=== PATIENT | female | born 1955 | race Caucasian/White ===

== ENCOUNTER 2025-01-22 00:35 | Inpatient (IN) | payer MEDICARE, OTHER, SELFPAY ==
[2025-01-21 16:37] VITALS: BP 149/67
[2025-01-21 17:10] LABS: Hematocrit 38.7 % (37.0-47.0); Hemoglobin 12.1 g/dL (12.0-16.0); Mean Corp Hgb Conc. 31.3 g/dL (33.0-37.0); Mean Corpuscular Volume 84.5 fL (81.0-99.0); Nucleated Red Blood Cells % 0 %; Platelet Count 244 10^3/uL (130-400); Red Cell Dist. Width 15.4 % (11.5-14.5)
[2025-01-21 17:13] LABS: Urine Character Clear (Clear)
[2025-01-21 17:21] LABS: INR 1.01; PT 13.6 Sec (11.4-14.6)
[2025-01-21 17:34] LABS: ALT (SGPT) 26 U/L (0-35); AST (SGOT) 26 U/L (14-36); Albumin 5.0 g/dl (3.5-5.0); Alkaline Phosphatase 73 U/L (38-126); Blood Urea Nitrogen 9 mg/dl (7-17); Calcium 10.3 mg/dl (8.4-10.2); Carbon Dioxide 27 mmol/L (22-30); Chloride 101 mmol/L (98-107); Glucose 189 mg/dl (70-99); Potassium 4.3 mmol/L (3.5-5.1); Sodium 139 mmol/L (135-145); Total Protein 8.3 g/dl (6.3-8.2); eGFR > 60.00
[2025-01-21 21:56] VITALS: BP 139/63
[2025-01-21 22:00] VITALS: BP 125/46
[2025-01-21 23:00] VITALS: BP 145/70
--- NOTE | 2025-01-21 23:04 | ED.GENMED ---
History of Present Illness
<Caro Whyte NP - Last Filed: 01/22/25 00:50>
General
Chief Complaint: Cough
Source: patient
Exam Limitations: none
Time Seen by Provider: 01/21/25 21:20
Nursing documentation reviewed up to this point in time: agreed with
History of Present Illness
History of Present Illness:
Patient to ED with report of hemoptysis. She states approx 1 mos ago she started coughing up blood. SHe was seen by senior commercial loan officer associated with [employer]. SHe had an oupatient CT that showed 'a nodule'. She was scheduled for an outpatient
Bronchoscopy on 01/01. states that she developed bronchospasms and the procedure was not completed. According to patient and spouse, a small sample from nodule was obtained, results were inconclusive. SHe was discharged after bronchoscopy
but developed fever/lethargy when she arrived home. SHe was sent back to by ambulance and admitted for sepsis, respiratory distress. SHe reports that she may have had pneumonia or 'may have had a pulmonary abscess. SHe was treated with IV
Vancomycin and then discharged home 4 days later on po Levaquin. No further hemoptysis until 2 nights ago. SHe reports episodes occur in the AM and the PM. Last episode was this AM. SHe spoke with her PCP and was advised to return to ED. SHe
refuses to return to so her spouse brought her here. SHe denies fever/chills. Increased use of her rescue inhaler. No respiratory distress on exam. On Plavix for prior CVA. Records requested from , awaiting fax.
Past History
<Caro Whyte NP - Last Filed: 01/22/25 00:50>
Past History
ED Past Medical History: CVA (2020), GERD, HTN, Hypercholesterolemia, IDDM and Hypothyroidism
Social History
Tobacco: Former smoker (quit x 20yrs)
Alcohol: None
Drug: None
Review of Systems
<Caro Whyte NP - Last Filed: 01/22/25 00:50>
Review of Systems
All Other Systems: ROS reviewed and negative except as documented in HPI and ROS
Constitutional: Reports no symptoms
EENT: Reports no symptoms
Respiratory: Reports hemoptysis (AM and PM x 3 days)
Cardiac: Reports no symptoms
ABD/GI: Reports no symptoms
: Reports no symptoms
Musculoskeletal: Reports no symptoms
Skin: Reports no symptoms
Neurological: Reports no symptoms
Psychiatric: Reports no symptoms
Phy Exam
<Caro Whyte SALES DIRECTOR - Last Filed: 01/22/25 00:50>
General Physical Exam
General Presentation: well appearing and no apparent distress
General age: appears stated age
General Skin: warm and dry
General Habitus: normal
General Mental: alert
Cardiovascular Exam
Cardiovascular Exam: regular rate/rhythm and no edema
Pulmonary Exam
Pulmonary Exam: lungs clear, no respiratory distress and no cough
Gastrointestinal Exam
Gastrointestinal Exam: non tender and soft
Musculoskeletal Exam
Musculoskeletal Exam: full ROM and neuro vasc intact
Skin Exam
Skin Exam: normal color, warm/dry and no rash
Psychiatric Exam
Psychiatric Exam: normal mood/affect
Course
<Caro Whyte SALES DIRECTOR - Last Filed: 01/22/25 00:50>
Orders/Labs/Results
Orders:
Orders
01/21/25 16:49
Electrocardiogram (*1) Urgent
Reason for Study: Other
Other Reason for Exam: Possible Sepsis
EKG- Treatment ONCE
01/21/25 16:52
CT Chest PE Study Urgent
Comment:
Reason For Exam: recent lung biopsy, coughing up blood
01/21/25 16:57
Complete Blood Count/With Diff Urgent
Comprehensive Metabolic Panel Urgent
Lactic Acid Q4H
Comment: ON ICE, CANCEL 2ND ORDER IF FIRST LACTIC ACID LEVEL <2
Prothrombin Time Urgent
Urinalysis Reflex To Culture Urgent
Date Specimen was Collected: 01/21/25
Time Specimen was Collected: 16:49
Blood Culture Q20M
BHAVNA Source: Blood/Venous
Specimen Description:
Comment: Urgent from separate sites. If patient screens positive for possible sepsis
01/21/25 23:34
PULMONARY CONSULT Urgent
Consulting Provider: Armando Dorantes
Was physician already notified: Yes
01/21/25 23:46
Lactic Acid Q4H
Comment: ON ICE, CANCEL 2ND ORDER IF FIRST LACTIC ACID LEVEL <2
Blood Culture Q20M
BHAVNA Source: Blood/Venous
Specimen Description:
Comment: Urgent from separate sites. If patient screens positive for possible sepsis
01/22/25 00:22
Admit/Transfer Patient As Directed
Co-Sign Provider:
Level of Care: Inpatient admission
Assign to:: Telemetry
Physician / Group: Jesse
Diagnosis: Lung lesion, Hemoptysis
Reason for Telemetry: Arrhythmia
Date to Stop Telemetry: 01/25/25
Time to Stop Telemetry: 11:00
Reason for Hospitalization: Lung lesion, Hemoptysis
Expected length of stay greater than two midnights?: Yes
ELOS- Estimated Length of Stay in days: 3
I certify the patient meets the requirements for IP care: Yes
PRN Pain Medication Management As Directed
May give lesser potent ordered pain med per pt: Yes
preference::
Protocol:: Medication orders for pain may be administered in a
manner that supports deferring to patient preference
when the pt is:
- Requesting an ordered lesser potent pain medication.
Least to most potent pain medications are defined
as: acetaminophen < NSAID < tramadol < opioids
(morphine, oxycodone, hydromorphone).
- Requesting a lesser dose of the same medication IF
ORDERED.
- Requesting a less intrusive route of administration
if both routes are prescribed by the provider (PO <
IV).
01/22/25 00:23
Code Status As Directed
Resuscitation Status: Full Code
01/25/25 11:00
DC Protocol for Telemetry ONCE
Abnormal Lab Results
01/21/25
16:57
MCH 26.4 L pg
(27.0-31.0)
MCHC 31.3 L g/dL
(33.0-37.0)
RDW 15.4 H %
(11.5-14.5)
Glucose 189 H mg/dl
(70-99)
Lactic Acid 3.0 H mmol/L
(0.7-2.0)
Calcium 10.3 H mg/dl
(8.4-10.2)
Total Protein 8.3 H g/dl
(6.3-8.2)
01/21/25 16:57
01/21/25 16:57
Vital Signs
Initial and Last Documented VS:
Initial Vital Signs
Temp Pulse Resp BP Pulse Ox
98.3 F 48 20 149/67 94
01/21/25 16:37 01/21/25 16:37 01/21/25 16:37 01/21/25 16:37 01/21/25 16:37
Last Documented Vital Signs
Temp Pulse Resp BP Pulse Ox
98.1 F 62 24 113/43 93
01/21/25 23:35 01/22/25 00:00 01/22/25 00:00 01/22/25 00:00 01/21/25 23:45
<Robbie Stacy DO - Last Filed: 01/21/25 23:07>
Orders/Labs/Results
Orders:
Orders
01/21/25 16:49
Electrocardiogram (*1) Urgent
Reason for Study: Other
Other Reason for Exam: Possible Sepsis
EKG- Treatment ONCE
01/21/25 16:52
CT Chest PE Study Urgent
Comment:
Reason For Exam: recent lung biopsy, coughing up blood
01/21/25 16:57
Complete Blood Count/With Diff Urgent
Comprehensive Metabolic Panel Urgent
Lactic Acid Q4H
Comment: ON ICE, CANCEL 2ND ORDER IF FIRST LACTIC ACID LEVEL <2
Prothrombin Time Urgent
Urinalysis Reflex To Culture Urgent
Date Specimen was Collected: 01/21/25
Time Specimen was Collected: 16:49
Blood Culture Q20M
BHAVNA Source: Blood/Venous
Specimen Description:
Comment: Urgent from separate sites. If patient screens positive for possible sepsis
01/21/25 23:34
PULMONARY CONSULT Urgent
Consulting Provider: Armando Dorantes
Was physician already notified: Yes
01/21/25 23:46
Lactic Acid Q4H
Comment: ON ICE, CANCEL 2ND ORDER IF FIRST LACTIC ACID LEVEL <2
Blood Culture Q20M
BHAVNA Source: Blood/Venous
Specimen Description:
Comment: Urgent from separate sites. If patient screens positive for possible sepsis
01/22/25 00:22
Admit/Transfer Patient As Directed
Co-Sign Provider:
Level of Care: Inpatient admission
Assign to:: Telemetry
Physician / Group: Jesse
Diagnosis: Lung lesion, Hemoptysis
Reason for Telemetry: Arrhythmia
Date to Stop Telemetry: 01/25/25
Time to Stop Telemetry: 11:00
Reason for Hospitalization: Lung lesion, Hemoptysis
Expected length of stay greater than two midnights?: Yes
ELOS- Estimated Length of Stay in days: 3
I certify the patient meets the requirements for IP care: Yes
PRN Pain Medication Management As Directed
May give lesser potent ordered pain med per pt: Yes
preference::
Protocol:: Medication orders for pain may be administered in a
manner that supports deferring to patient preference
when the pt is:
- Requesting an ordered lesser potent pain medication.
Least to most potent pain medications are defined
as: acetaminophen < NSAID < tramadol < opioids
(morphine, oxycodone, hydromorphone).
- Requesting a lesser dose of the same medication IF
ORDERED.
- Requesting a less intrusive route of administration
if both routes are prescribed by the provider (PO <
IV).
01/22/25 00:23
Code Status As Directed
Resuscitation Status: Full Code
01/25/25 11:00
DC Protocol for Telemetry ONCE
Abnormal Lab Results
01/21/25
16:57
MCH 26.4 L pg
(27.0-31.0)
MCHC 31.3 L g/dL
(33.0-37.0)
RDW 15.4 H %
(11.5-14.5)
Glucose 189 H mg/dl
(70-99)
Lactic Acid 3.0 H mmol/L
(0.7-2.0)
Calcium 10.3 H mg/dl
(8.4-10.2)
Total Protein 8.3 H g/dl
(6.3-8.2)
01/21/25 16:57
01/21/25 16:57
Vital Signs
Initial and Last Documented VS:
Initial Vital Signs
Temp Pulse Resp BP Pulse Ox
98.3 F 48 20 149/67 94
01/21/25 16:37 01/21/25 16:37 01/21/25 16:37 01/21/25 16:37 01/21/25 16:37
Last Documented Vital Signs
Temp Pulse Resp BP Pulse Ox
98.1 F 62 24 113/43 93
01/21/25 23:35 01/22/25 00:00 01/22/25 00:00 01/22/25 00:00 01/21/25 23:45
<Caro Whyte NP - Last Filed: 01/22/25 00:50>
*Radiology
Radiology exam reviewed: radiology read reviewed
*Pulse Oximetry
SaO2: 93
Oxygen Mode of Delivery: Room air
Patient hypoxic: no
*Critical Care Note
Total Time (30-74mins, 75-104mins- exclusive of procedures): Not Applicable
<Caro Whyte NP - Last Filed: 01/22/25 00:50>
Update Note
Update Note:
Patient to ED with report of hemoptysis x 3 days. Recent inpatient stay at for sepsis following broncoscopy. Patient is unclear on what exactly occured during that admission, unclear as to follow up for her pulmonary nodule. Records requested
from , awaiting fax transmission. CT here tonight: Spiculated JAMSHID pulmonary mass concerning for malignance, pneumonia can not be exclulded. Two JAMSHID pulmonary nodules, metastatic vs infectious/inflammatory. Labs reveiwed. WBC 7.2 with lactic of
3.0. SHe remains afebrile. H/H 12.1/38.7 PUlse ox 98%RA. No cough present in ED. No episodes of hemoptysis. Case discussed with Dr. Dorantes. Patient to be admitted to hospitalist, pulmonolgy will consult in AM
ED Attending Note
<Caro Whyte NP - Last Filed: 01/22/25 00:50>
-
Portions of this chart may have been created with voice recognition software.� Occasional wrong word or��sound alike� substitutions may have occurred due to the inherent limitations of voice recognition software.
<Robbie Stacy, DO - Last Filed: 01/21/25 23:07>
ED Attending Note
Patient seen and examined by attending physician: Yes
I performed the substantive portion of visit, reviewed & personally made and approve the management plan that is documented in note by myself or ELEAZAR.: Yes
ED Attending Note:
I evaluated the patient at bedside. Labs are unremarkable however CT imaging is concerning. Pulmonary recommended the patient stay in the hospital for further management.
Discharge Plan
Departure
Patient Disposition: Admit
Date of Disposition: 01/21/25
Time of Disposition: 23:34
Presentation/result/management discussed w/ accepting MD/DO: Hospitalist
Patient with high blood pressure during this ER visit?: No
Condition: Fair
Covid-19: Not Applicable
Discharge Problem:
Hemoptysis
Interventions
Interventions:
*Risk Screen - Suicide Last Done: 01/21/25 16:47
*General Assessment Last Done: 01/21/25 16:47
*Neglect/Abuse Screening Last Done: 01/21/25 16:47
*ED- Fall Risk Assessment Last Done: 01/21/25 22:18
*ED COVID-19 Vaccine History Last Done: 01/21/25 16:47
ED- Pulmonary Assessment Last Done: 01/21/25 22:18
[2025-01-21 23:34] VITALS: BP 125/63
[2025-01-21 23:35] VITALS: BP 125/63
[2025-01-22] VITALS (9 sets, daily range): BP systolic 111–153; BP diastolic 42–77; BMI 28.3
--- NOTE | 2025-01-22 00:24 | HPS.HSE ---
Family Physician
-
Family Physician: Brenda Rodriguez PA-C
Chief Complaint
-
Cough, Hemoptysis
History of Present Illness
Patient is a 69y F with PMH significant for DM-II, prior CVA and hypothyroidism who presents to ED complaining of cough and hemoptysis. Patient states that she has had cough for the past 4 weeks or so. She notes cough that is worse at night and
began to include bright red blood / hemoptysis. She was seen by her PCP and referred to Pulmonology at [facility]. She had CT scan done which showed two small JAMSHID nodules as well as larger L lung lesion with central necrosis. Patient underwent
bronchoscopy at [facility] about 2 weeks ago. Procedure was reportedly cut short due to bronchospasm; although, patient believes that '17 or 18' samples were taken.
Patient was discharged home, but was readmitted within 24 hours with fever and chills. She was treated for pneumonia / sepsis and discharged.
Patient states that she had been feeling well for the past two weeks with no cough, hemoptysis, etc.
About 2 days ago she started to have coughing again. Cough is worse at night and is again accompanied by large amount of bright red blood / hemoptysis.
Patient denies any recurrent fevers, chills, SOB, chest pain, etc.
Patient states that the biopsies done at [facility] were 'inconclusive'.
Medical History
Past Medical History
Past Medical History: Reports Other
Additional Past Medical History:
DM-II
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
Mitral Valve Prolapse
Hypothyroidism
Lung Nodules
Past Surgical History: Reports Other
Additional Past Surgical History:
Cataracts
Pilonidal Cyst
Abdominoplasty
Bronchoscopy / Biopsies
Social History
Tobacco: Former Smoker (Quit smoking 20 years ago. Approx 20 pack years total use.)
Alcohol: None
Drug: None
Family History
Family History: Other (Father: at 36yo due to [place] Brother: at 38yo due to [place] MGF: Lung Cancer Mother: Lung Cancer)
Allergies / Home Medications
Allergies reflects when Allergies were last updated in [facility].
Home Medications with original date entered in [facility]
Allergy/Medication List:
Allergies
Allergy/AdvReac Type Severity Reaction Status Date / Time
amoxicillin Allergy Unknown Verified 01/21/25 23:33
Cephalosporins Allergy Unknown Verified 01/21/25 23:33
clavulanic acid Allergy Unknown Verified 01/21/25 23:33
pecan nut Allergy Unknown Verified 01/21/25 23:33
Penicillins Allergy Unknown Verified 01/21/25 23:33
Home Medications
atenolol 25 mg tablet 25 mg PO DAILY 01/21/25
atorvastatin 20 mg tablet (Lipitor) 20 mg PO QPM 01/21/25
clonazepam 1 mg tablet (Klonopin) 1 mg PO TID 01/21/25
clopidogrel 75 mg tablet (Plavix) 75 mg PO DAILY 01/21/25
insulin glargine 100 unit/mL subcutaneous solution (Lantus U-100 Insulin) 15 unit SC .[id number] 01/21/25
levothyroxine 112 mcg tablet 112 mcg PO DAILY 01/21/25
pantoprazole 20 mg tablet,delayed release (Protonix) 20 mg PO DAILY 01/21/25
Review of Systems
-
History Source: Patient
Constitutional: Denies Fever or Chills
EENT: Denies Sore Throat
Respiratory: Reports Cough and Hemoptysis; Denies Trouble Breathing
Cardiac: Denies Chest Pain or Palpitations
Abdomen/GI: Denies Abdominal Pain, Nausea, Vomiting or Diarrhea
: Denies Dysuria or Frequency
Musculoskeletal: Denies Joint Pain or Edema
Neurological: Denies Dizzy or Headache
Physical Exam
Vital Signs
Vital Signs
Temp Pulse Resp BP Pulse Ox
98.1 F 62 24 113/43 93
09/23/25 23:35 01/22/25 00:00 01/22/25 00:00 01/22/25 00:00 01/21/25 23:45
Physical Exam
General: Other (69y F in no acute distress.)
HEENT: Moist mucous membranes and PERRLA
Respiratory: Clear; No Wheezes, Rales or Rhonchi
Cardiac: S1/S2 and Regular Rhythm; No Murmur
GI: Soft, Non Tender, Non Distended and Normal Bowel Sounds
Musculoskeletal: No Clubbing, No Cyanosis and No Edema
Neuro: AO x 3
Laboratory Results
-
01/21/25 16:57
01/21/25 16:57
Laboratory Results
PT 13.6 Sec (11.4-14.6) 01/21/25 16:57
INR 1.01 01/21/25 16:57
Lactic Acid 1.1 mmol/L (0.7-2.0) 01/21/25 23:46
Total Bilirubin 0.9 mg/dl (0.2-1.3) 01/21/25 16:57
AST 26 U/L (14-36) 01/21/25 16:57
ALT 26 U/L (0-35) 01/21/25 16:57
Alkaline Phosphatase 73 U/L (38-126) 01/21/25 16:57
Impression/Plan
-
A/P: Patient is a 69y F with PMH significant for hypothyroidism, CVA and DM-II who presents to ED complaining of cough and hemoptysis.
Cough / Hemoptysis
L Lung Lesion / Nodules
- Admit for further evaluation and treatment.
- Patient not ill-appearing at present, afebrile, non-toxic, not hypoxemic, etc.
- Observe off of abx for now.
- Quantify hemoptysis. Hold Plavix.
- Obtain prior records / path results from recent [facility] bronchoscopy.
- Local Pulmonary evaluation for additional recommendations.
ASCVD
History of CVA
- Holding Plavix acutely as noted above.
- Continue atenolol.
- Residual vision deficit and mild R weakness from prior CVA per patient.
- Follow for any new symptoms / complaints.
DM-II
- Stable. Continue basal insulin at decreased dose for now.
- Follow glucose and cover with SSI as needed.
- Update A1C.
Hypothyroidism
- Continue current T4 supplementation.
DVT Prophylaxis: SCDs
Code Status: Full
--- NOTE | 2025-01-22 01:35 | PTCARENOTE ---
Pt arrived from ED accompanied by staff. Pt ambulated from stretcher to bed independently. VSS. Pt AAOx3. Pt oriented to room with call graff in reach. Plan of care ongoing.
[2025-01-22 01:48] LABS: Glucose - Point of Care 167 mg/dl (70-99)
[2025-01-22] MEDS: NSS 1000 IV ×3 (02:28→21:35)
[2025-01-22 05:33] LABS: Glucose - Point of Care 160 mg/dl (70-99)
[2025-01-22] MEDS: SYNTHROID 112 MCG PO (05:53)
[2025-01-22] MEDS: NOVOLOG FLEXPEN-LOW RESISTANCE 1 UNITS SC ×2 (06:28→12:26)
[2025-01-22 07:22] LABS: Hematocrit 34.3 % (37.0-47.0); Hemoglobin 10.6 g/dL (12.0-16.0); Mean Corp Hgb Conc. 30.9 g/dL (33.0-37.0); Mean Corpuscular Volume 83.1 fL (81.0-99.0); Platelet Count 197 10^3/uL (130-400); Red Cell Dist. Width 15.5 % (11.5-14.5)
[2025-01-22 07:37] LABS: Blood Urea Nitrogen 9 mg/dl (7-17); Calcium 9.2 mg/dl (8.4-10.2); Carbon Dioxide 29 mmol/L (22-30); Chloride 105 mmol/L (98-107); Estimated Creatinine Clearance 83 ml/min; Glucose 169 mg/dl (70-99); Potassium 3.9 mmol/L (3.5-5.1); Sodium 140 mmol/L (135-145); eGFR > 60.00
[2025-01-22] MEDS: PROTONIX 20 MG PO (09:30)
[2025-01-22] MEDS: KLONOPIN 1 MG PO ×3 (09:31→21:34)
[2025-01-22] MEDS: TENORMIN 25 MG PO (09:31)
--- NOTE | 2025-01-22 09:38 | W.PN.UPDATE ---
Update Note
Progress Note Update
Patient admitted midnight for hemoptysis
States that it could be around 25-30 cc over 48 hours; was at PCP yesterday with desat to 89%
currently denies any SOB or chest pain, no fever/chills. not on O2
Assessment:
acute Hemoptysis, exacerbated by Plavix
- Recent hospitalization [facility] for SOB/chest pain/fever/hypoxia/confusion with ID/Pulm eval. She has undergone bronc/BAL 24 hours prior (Dr. Babin, [facility] pulm) and path was suggestive of 'acute fibrinous/organizing pneumonia with focal necrosis/early
abscess.' Bronch cultuers were negative. She completed a course of Levaquin per ID who mentioned an aspiration event in November that patient suffered.
- reports recurrent hemoptysis and desats yesterday prompting ER visit
- CT showing: Pleural-based cavitated spiculated left upper lobe pulmonary mass concerning for malignancy. Pneumonia cannot be excluded. Two solid 3 mm left upper lobe pulmonary nodules. These may be metastatic or post inflammatory/infectious in
etiology. Too small for PET imaging. No evidence of pulmonary embolus. Mild bilateral hilar lymphadenopathy.
- no clinical evidence of PNA at present; holding off Abx
- holding Plavix
- NPO pending pulm evaluation
- awaiting full records from [facility]
- would benefit from OP PET Scan
Hx of CVA
- recent MRI at [facility] negative for acute CVA. Echo bubble study was positive.
- holding Plavix
- continue Statin
COPD
Lung Nodules
CAD
Essential HTN
MVP
hx of SVT
- continue BB
Type 2 DM
- continue Lantus + SSI
- A1c: 10.2 recently
Hypothyroidism - on replacement
GERD on PPI
Fatty Liver
recent E. coli UTI at [facility] - completed Abx.
Cervvical radiculopathy on Klonopin
DVT ppx: SCDs
Code: Full
[2025-01-22 09:40] LABS: Glycohemoglobin (HgbA1c) 9.2 % (4.0-5.6)
--- NOTE | 2025-01-22 10:40 | CON.PUL ---
Consultation
Consultation Request
Date/Time Consultation Requested: 01/22/2025
Date/Time Consultation Performed: 01/22/2025
Requesting Provider: Dr. White
Performing Provider: Dr. Cristofer Butler
Reason for Consultation: Abnormal CT chest
Medical History
-
History of Present Illness:
69-year-old woman with past medical history type 2 diabetes, CVA, hypothyroidism who presented to the emergency room complaining of cough and hemoptysis.
Patient reports 4 weeks of coughing. Productive and subsequently including hemoptysis.
Patient went to the [facility]. CT chest showed 2 small left upper lobe nodules as well as the largest left lung lesion with central necrosis.
2 weeks ago underwent bronchoscopy. Apparently complicated by bronchospasm. Patient discharged home and returned 24 hours with fevers and chills. Treated for pneumonia and sepsis and subsequently discharged.
Has been feeling well for the past 2 weeks without hemoptysis or coughing.
Again 2 days ago started with coughing. Complaining of large amount of bright red blood and hemoptysis.
Denies fevers, chills, night sweats.
Biopsies from bronchoscopy apparently inconclusive.
Past Medical History
Past Medical History: Other ( See assessment and plan)
Social History
Tobacco: Former Smoker (Quit smoking 20 years ago. [id number] usage.)
Alcohol: None
Drug: None
Family History
Family History: Reviewed & Not Pertinent
Allergies / Home Medications
Allergies
Allergy/AdvReac Type Severity Reaction Status Date / Time
amoxicillin Allergy Unknown Verified 01/22/25 02:41
Cephalosporins Allergy Unknown Verified 01/22/25 02:41
clavulanic acid Allergy Unknown Verified 01/22/25 02:41
pecan nut Allergy Unknown Verified 01/22/25 02:41
Penicillins Allergy Unknown Verified 01/22/25 02:41
Home Medications
�Medication �Instructions �Recorded �Confirmed �Last Taken �Type
atenolol 25 mg tablet 25 mg PO DAILY 01/21/25 01/21/25 Unknown History
atorvastatin 20 mg tablet (Lipitor) 20 mg PO QPM 01/21/25 01/21/25 Unknown History
clonazepam 1 mg tablet (Klonopin) 1 mg PO TID 01/21/25 01/21/25 Unknown History
clopidogrel 75 mg tablet (Plavix) 75 mg PO DAILY 01/21/25 01/21/25 Unknown History
insulin glargine 100 unit/mL 15 unit SC .[id number] 01/21/25 01/21/25 Unknown History
subcutaneous solution (Lantus
U-100 Insulin)
levothyroxine 112 mcg tablet 112 mcg PO DAILY 01/21/25 01/21/25 Unknown History
pantoprazole 20 mg tablet,delayed 20 mg PO DAILY 01/21/25 01/21/25 Unknown History
release (Protonix)
Review of Systems
-
History Source: Patient
All other systems: Negative unless noted
Vitals / Labs / Diagnostic Testing
Vital Signs
Temp Pulse Resp BP Pulse Ox
97.8 F 58 18 133/77 93
01/22/25 07:30 01/22/25 09:31 01/22/25 07:30 01/22/25 09:31 01/22/25 09:24
Lab Data
01/22/25 06:33
01/22/25 06:33
Laboratory Results
01/21/25
16:57
PT 13.6
INR 1.01
Diagnostic Testing:
Physical Exam
-
HEENT: Normocephalic
Cardiovascular: S1/S2
Respiratory: Non-Labored Respirations
GI: Soft and Non Distended
Neurology: Awake, Alert and AO x 3
Skin: Warm
General: Respiratory Distress and Comfortable
Assessment
-
69-year-old woman admitted with hemoptysis. History of pneumonia 2 weeks ago treated at [facility]. Apparently cavitating pneumonia underwent bronchoscopy with inconclusive biopsy. Initially improved with antibiotics. Returns with
2-day history of hemoptysis and coughing.
Hemoptysis
Patient on Plavix
Abnormal CT chest.
Pleural-based cavitary spiculated left upper lobe pulmonary mass concerning for malignancy.
Solid 3 mm left upper lobe pulmonary nodules.
No evidence for pulmonary embolism
Mild bilateral hilar lymphadenopathy.
Emphysema on CAT scan
Recent history of pneumonia treated with antibiotics at [facility]
Status post bronchoscopy-inconclusive results.
Conditions present prior admission:
Former smoker quit 20 years ago
Family history of lung cancer: Mother and maternal grandfather
Type 2 diabetes
Mitral valve prolapse
Hypothyroidism
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
Mild intermittent asthma-only on albuterol HFA during spring.
Snoring
Assessment and plan:
From the pulmonary perspective: Doubt any active infection.
Suspect hemoptysis in the setting of recent infection possibly some degree of bronchiectasis locally in the setting of Plavix.
Continue to hold Plavix for 3 to 5 days.
Monitor for hemoptysis.
Patient not in distress
No indication for antibiotic from the pulmonary perspective-patient completed at least 10 days of antibiotics from the [facility] treated for pneumonia.
Afebrile without leukocytosis
-
Certainly patient has risk factor for lung cancer including prior smoking, emphysema and family history.
Discussed with her the possibility of carcinoma if there is no improvement on repeating imaging.
Recommend obtaining a PET/CT in the next 2 to 3 weeks and depending on results proceed with further biopsies.
I will see her in my office next week to set up she would like to follow-up locally.
She will bring a CD of her prior images from [facility]
At that time we will also request records-underwent robotic bronchoscopy but procedure was terminated sooner as the patient developed bronchospasm.
-
Patient states that she underwent pulmonary function testing in the [facility]-Will eventually request.
-
Patient snores and has symptoms suggestive of obstructive sleep apnea-she is interested in evaluating.
I will address during the outpatient setting
-
Dr. Butler updated son at the bedside and agreeable with plan.
Dr. Butler updated Dr. White
Plan is to for possible discharge in the next 24 hours if there is no significant hemoptysis or respiratory failure.
-
Will follow
--- NOTE | 2025-01-22 11:41 | CM ---
IA complete... IMM complete. Pt is independent with ADL and IADLs.Pt lives in 3 story home with , son and 2 grandchldren. BR on 2nd floor with 10 steps at entrance and 14 steps to BR. NO hx of SNF. History of HC through [facility] for PT and
VN. DME: rolling walker, SPC and r. Also has a portable tank.Confirmed PCP, RX inisurance and drug coverage. NO insecurities identified.
O2 at home 1-2 lpm via n/c as needed for PO OX < 90%.Uses [facility] as [facility]
Plan: Possible DC tomorrow to home with home O2.
PCP:Brenda Rodriguez
Rx: DAVID / Graciela
[2025-01-22 12:09] LABS: Glucose - Point of Care 178 mg/dl (70-99)
--- NOTE | 2025-01-22 15:12 | PTCARENOTE ---
Pt AAO x3, IQBAL well, OOB to BR; maggie well, no c/o weakness/dizziness. VSS. Telemetry:sinus anitra to 40's when pt sleeping. On room air- pulse ox 95%, pt with out c/o hemoptysis. Pt has (+) slight PATEL; denies SOB. Abd obese, soft, maggie PO well.
Voids in BR without difficulty. IVF's NSS @ 100 ml/hr infusing via Rt AC site without sx of infiltration. No c/o at present. Will continue to monitor.
[2025-01-22 16:51] LABS: Glucose - Point of Care 224 mg/dl (70-99)
[2025-01-22] MEDS: LIPITOR 20 MG PO (17:45)
[2025-01-22] MEDS: LANTUS 0.1 UNITS SC (17:45)
[2025-01-22] MEDS: NOVOLOG FLEXPEN-LOW RESISTANCE 2 UNITS SC (17:45)
[2025-01-22 21:18] LABS: Glucose - Point of Care 209 mg/dl (70-99)
[2025-01-23 03:56] VITALS: BP 113/47
[2025-01-23] MEDS: SYNTHROID 112 MCG PO (04:43)
[2025-01-23 06:00] VITALS: BMI 28.6
[2025-01-23 07:28] LABS: Hematocrit 31.0 % (37.0-47.0); Hemoglobin 9.7 g/dL (12.0-16.0); Mean Corp Hgb Conc. 31.3 g/dL (33.0-37.0); Mean Corpuscular Volume 84.7 fL (81.0-99.0); Platelet Count 175 10^3/uL (130-400); Red Cell Dist. Width 15.4 % (11.5-14.5)
[2025-01-23 07:52] LABS: Blood Urea Nitrogen 7 mg/dl (7-17); Calcium 8.4 mg/dl (8.4-10.2); Carbon Dioxide 28 mmol/L (22-30); Chloride 109 mmol/L (98-107); Estimated Creatinine Clearance 97 ml/min; Glucose 158 mg/dl (70-99); Potassium 3.9 mmol/L (3.5-5.1); Sodium 140 mmol/L (135-145); eGFR > 60.00
[2025-01-23 07:53] VITALS: BP 97/51
[2025-01-23] MEDS: TENORMIN PO (08:40)
[2025-01-23] MEDS: KLONOPIN 1 MG PO (08:41)
[2025-01-23] MEDS: PROTONIX 20 MG PO (08:42)
[2025-01-23] MEDS: NSS IV (08:45)
[2025-01-23 08:54] LABS: Glucose - Point of Care 159 mg/dl (70-99)
[2025-01-23] MEDS: NOVOLOG FLEXPEN-LOW RESISTANCE 1 UNITS SC (09:26)
[2025-01-23 09:31] VITALS: BP 129/62
--- NOTE | 2025-01-23 10:48 | W.PN.PUL3 ---
Today's Communication / Plan
-
Hold Plavix for total of 5 days
Discontinue antibiotics
Outpatient pulmonary follow-up in 1 week
PET scan will be required and arrange at that visit.
Discharge today
Sign off
Assessment
-
69-year-old woman admitted with hemoptysis. History of pneumonia 2 weeks ago treated at [facility]. Apparently cavitating pneumonia underwent bronchoscopy with inconclusive biopsy. Initially improved with antibiotics. Returns with
2-day history of hemoptysis and coughing.
Hemoptysis
Patient on Plavix
Abnormal CT chest.
Pleural-based cavitary spiculated left upper lobe pulmonary mass concerning for malignancy.
Solid 3 mm left upper lobe pulmonary nodules.
No evidence for pulmonary embolism
Mild bilateral hilar lymphadenopathy.
Emphysema on CAT scan
Recent history of pneumonia treated with antibiotics at [facility]
Status post bronchoscopy-inconclusive results.
Conditions present prior admission:
Former smoker quit 20 years ago
Family history of lung cancer: Mother and maternal grandfather
Type 2 diabetes
Mitral valve prolapse
Hypothyroidism
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
Mild intermittent asthma-only on albuterol HFA during spring season.
Snoring
Assessment and plan:
From the pulmonary perspective: Do no evidence for active infection.
Suspect hemoptysis in the setting of recent infection possibly some degree of bronchiectasis locally in the setting of Plavix.
Continue to hold Plavix for total of 5 days. Patient will ask her neurologist whether she can transition to only aspirin)(
Monitor for hemo ptysis-minimal.
Patient not in distress
Clear lung exam.
No indication for antibiotic from the pulmonary perspective-patient completed at least 10 days of antibiotics from the [facility] treated for pneumonia.
Afebrile without leukocytosis
-
Certainly patient has risk factor for lung cancer including prior smoking, emphysema and family history.
Discussed with her the possibility of carcinoma if there is no improvement on repeating imaging.
Recommend obtaining a PET/CT in the next 2 to 3 weeks and depending on results proceed with further biopsies.(I will arrange this once she sees me in my office)
I will see her in my office next week to set up she would like to follow-up locally.
She will bring a CD of her prior images from [facility]
At that time we will also request records-underwent robotic guided bronchoscopy but procedure was terminated sooner as the patient developed bronchospasm.
-
Patient states that she underwent pulmonary function testing in the [facility]-Will eventually request.
-
Patient snores and has symptoms suggestive of obstructive sleep apnea-she is interested in evaluating.
I will address during the outpatient setting
-
Dr. Butler updated son at the bedside and agreeable with plan.
Dr. Butler updated Dr. White 01/23/2025.
Okay to discharge today.
-
Will follow
Subjective Data
-
Date of Service:
Date of Service: January 23, 2025
Chief Complaint: Pulmonary Follow Up (Hemoptysis/abnormal CT)
Subjective:
Clinically improved
Minimal hemoptysis
Denies shortness of breath or chest
Objective Data
Data Reviewed
Vital Signs / I&O / Oxygen:
Vital Signs
Temp Pulse Resp BP Pulse Ox
97.9 F 52 18 129/62 94
01/23/25 07:53 01/23/25 09:31 01/23/25 07:53 01/23/25 09:31 01/23/25 08:15
Intake and Output
01/22/25 01/23/25 01/24/25
06:59 06:59 06:59
Intake Total 0 / 0 2280 / 2280
Balance 0 / 0 2280 / 2280
SaO2 94
Nasal Cannula flow liters per 2
minute
Physical Exam
General: Comfortable
HEENT: Normocephalic
Cardiovascular: S1-S2
Respiratory: Clear and Non-Labored Respirations
GI: Soft and Non Distended
Neurology: Awake, Alert, Oriented and AO x 3
Skin: Warm
Labs/Micro/Reports
Lab Data
01/23/25 06:15
01/23/25 06:15
Microbiology
01/21/25 23:46 Blood/Venous Blood Culture - Preliminary
No Growth in 24 hours- Final report to follow
01/21/25 16:57 Blood/Venous Blood Culture - Preliminary
No Growth in 24 hours- Final report to follow
--- NOTE | 2025-01-23 11:31 | W.PN.HOSP.TC ---
Addendum entered and electronically signed by Akash White MD 01/24/25 08:16:
Acute blood loss anemia
Original Note:
Today's Communication/Plan
-
dc to home today
Assessment / Plan
Assessment / Plan
Assessment:
acute Hemoptysis, exacerbated by Plavix
- Recent hospitalization [facility] for SOB/chest pain/fever/hypoxia/confusion with ID/Pulm eval. She has undergone bronc/BAL 24 hours prior (Dr. Babin, [facility] pulm) and path was suggestive of 'acute fibrinous/organizing pneumonia with focal necrosis/early
abscess.' Bronch cultuers were negative. She completed a course of Levaquin per ID who mentioned an aspiration event in November that patient suffered.
- reports recurrent hemoptysis and desats yesterday prompting ER visit
- CT showing: Pleural-based cavitated spiculated left upper lobe pulmonary mass concerning for malignancy. Pneumonia cannot be excluded. Two solid 3 mm left upper lobe pulmonary nodules. These may be metastatic or post inflammatory/infectious in
etiology. Too small for PET imaging. No evidence of pulmonary embolus. Mild bilateral hilar lymphadenopathy.
- no clinical evidence of PNA at present; holding off Abx
- holding Plavix x 5 days per pulmonary
- Pulm evaluated; plan is for f/u in 1 week, with plan for PET Scan and reassess for further biopsies
Hx of CVA
- recent MRI at [facility] negative for acute CVA. Echo bubble study was positive.
- holding Plavix x 5 days
- continue Statin
COPD
Lung Nodules
CAD
Essential HTN
MVP
hx of SVT
- continue BB
Type 2 DM
- continue Lantus + SSI
- A1c: 10.2 recently
Hypothyroidism - on replacement
GERD on PPI
Fatty Liver
recent E. coli UTI at [facility] - completed Abx.
Cervical radiculopathy on Klonopin
DVT ppx: SCDs
Code: Full
More than 30 minutes spent in discharge including
Final examination of the patient
Summarizing hospital stay
Instructions for continuing care to all relevant caregivers
Preparation of discharge records, prescriptions, and referral forms
Total time spent (in minutes): 41
Anticipated Discharge: Today
Subjective/Interval History
-
Date of Service: January 23, 2025
scant hemoptysis
no SOB
has home O2 already
Objective Data
-
Labs:
Laboratory Results
01/23/25
06:15
WBC 4.5 L
Hgb 9.7 L
Hct 31.0 L
Plt Count 175
Sodium 140
Potassium 3.9
Chloride 109 H
Carbon Dioxide 28
BUN 7
Creatinine 0.5 L
Glucose 158 H
Calcium 8.4
Vital Signs:
Vital Signs
Temp Pulse Resp BP Pulse Ox
97.9 F 52 18 129/62 94
01/23/25 07:53 01/23/25 09:31 01/23/25 07:53 01/23/25 09:31 01/23/25 08:15
I&O
01/22/25 01/23/25 01/24/25
06:59 06:59 06:59
Intake Total 0 / 0 2279
Balance 0 / 0 2279
Physical Exam
-
General: No Apparent Distress
HEENT: Normocephalic and Atraumatic
Respiratory: Negative Wheezes
Cardiac: Regular Rhythm and S1/S2
GI: Soft
Genito-urinary: No Costovertebral Tender
Neuro: AO x 3
Psych: Calm
Data Reviewed
-
Total Time Spent with Patient (in minutes): 42
Labs: Labs Reviewed by me
--- NOTE | 2025-01-23 11:35 | CM ---
Met with pt and son bedside. Dr. White to discharge today. Pt will be discharge via wheelchair to avoid unnecessary exertion. She will be on room air. Pt is 94% on room air at rest.
Plan: DC to home with son. Has O2 set up at home.
--- NOTE | 2025-01-23 11:37 | W.DCSUMMARY ---
Discharge Summary
Discharge Data
Date of Admission: 01/22/25
Date of Discharge: 01/23/25
-
Pending Results: No
Hospital Course
69 y/o F with history of 1 month of hemoptysis with recent bronch and pneumonia/abscess treatment at [facility] presented to ER with hemoptysis. Her Plavix (For hx of CVA) was held; pulmonary evaluated the patient and reviewed records
from the prior bronch along with biopsies. A CT was performed confirming a JAMSHID Mass which was treated with Levaquin given path was suggestive of abscess. Patient's hemoptysis here was scant and Hb was stable. She was discharged 01/23 to home and will
have a pulmonary follow up in 1 week with a plan for PET Scan. PET scan results will determine if further procedures/biopsies will be pursued.
Discharge Plan
-
Patient Disposition: Home (Routine Discharge)
Discharge Diagnosis/Procedures: JAMSHID mass, recent aspiration/lung abscess/pneumonia treated, hemoptysis
Condition: Fair
Diet: Low Cholesterol and Diabetic, Carb Controlled
Activity: As tolerated
Bathing Restrictions: None
Others Tests: outpatient PET scan - Dr. Butler office will arrange
Referrals:
Cristofer Ruiz MD [Active, Pulmonary Medicine] - in one week
Brenda Rodriguez PA-C [Family Provider, Family Practice]
Prescriptions:
Continued
atorvastatin [Lipitor] 20 mg Tablet
20 mg PO QPM
insulin glargine [Lantus U-100 Insulin] 100 unit/mL Solution
15 unit SC .[id number]
clonazepam [Klonopin] 1 mg Tablet
1 mg PO TID
atenolol 25 mg Tablet
25 mg PO DAILY
pantoprazole [Protonix] 20 mg Tablet,Delayed Release (Dr/Ec)
20 mg PO DAILY
levothyroxine 112 mcg Tablet
112 mcg PO DAILY
Held
clopidogrel [Plavix] 75 mg Tablet
75 mg PO DAILY
Hold Instructions: Resume on 01/27/25.
Discharge Orders:
Discharge Patient (As Directed); Ordered 01/23/25
Ordered By: Akash White
Discharge Date and Time
Print Language: QATARI
[2025-01-23 11:41] VITALS: BP 165/75
--- NOTE | 2025-01-24 07:29 | PN.CDI ---
CDI
- -
CDI:
Physician Documentation Request
Admit Date: 01/22/25 00:35
Dear Doctor Cindy,
Please review the following and provide your response in the progress notes.
Clinical Indicators:
Pt admitted with Acute hemoptysis 2/2 to Plavix use
Trended Hemoglobin/Hematocrits below
Laboratory Tests
01/21/25 01/22/25 01/23/25
16:57 06:33 06:15
Hgb 12.1 10.6 L 9.7 L
Hct 38.7 34.3 L 31.0 L
Please provide a diagnosis for the above laboratory findings :
Acute blood loss anemia
Abnormal lab value only
Other ( please specify)
Use of terms such as suspected, likely, concern for, or probable (associated with a specific diagnosis that is being evaluated, monitored, or treated as if it exists) are acceptable and can be coded in the inpatient setting, when documented at the
time of discharge.
Thank you,
Kristen Haider RN
CDI Specialist
Anna Text
Please use your independent medical judgment in providing your response.
== END 2025-01-23 12:33 | disposition home or self-care (01) | DRG 813 ==
LOC: 4 EAST ACU 00:35
PROVIDERS: Student in an Organized Health Care Education/Training Program; ADMITTING PHYSICIAN Hospitalist; ATTENDING PHYSICIAN Internal Medicine; CONSULT PHYSICIAN Internal Medicine Critical Care Medicine; EMERGENCY PHYSICIAN Emergency Medicine; FAMILY PHYSICIAN Physician Assistant
DX: D68.32 Hemorrhagic disorder due to extrinsic circulating anticoagulants (principal); R04.2 Hemoptysis; I69.351 Hemiplegia and hemiparesis following cerebral infarction affecting right dominant side; D62 Acute posthemorrhagic anemia; J47.9 Bronchiectasis, uncomplicated; T45.525A Adverse effect of antithrombotic drugs, initial encounter; R91.8 Other nonspecific abnormal finding of lung field; I25.10 Atherosclerotic heart disease of native coronary artery without angina pectoris; E11.9 Type 2 diabetes mellitus without complications; E03.9 Hypothyroidism, unspecified; I10 Essential (primary) hypertension; K21.9 Gastro-esophageal reflux disease without esophagitis; J43.9 Emphysema, unspecified; M54.12 Radiculopathy, cervical region; R59.0 Localized enlarged lymph nodes; J45.20 Mild intermittent asthma, uncomplicated; Z79.899 Other long term (current) drug therapy; Z87.01 Personal history of pneumonia (recurrent); Z87.891 Personal history of nicotine dependence; I69.398 Other sequelae of cerebral infarction; Z79.4 Long term (current) use of insulin
CPT/HCPCS: 71275; 80048; 80053; 81003; 82962; 83036; 83605; 85025; 85027; 85610; 87040; 93005; 99285; Q9967

== ENCOUNTER → 2025-02-06 11:44 | Outpatient (REF) | payer MEDICARE, OTHER, SELFPAY ==
[2025-02-06 12:12] LABS: Glucose 202 mg/dl (70-99)
== END ==
LOC: PET 11:44
PROVIDERS: ATTENDING PHYSICIAN Internal Medicine Critical Care Medicine
DX: R91.8 Other nonspecific abnormal finding of lung field (principal); Z01.818 Encounter for other preprocedural examination; E78.5 Hyperlipidemia, unspecified
CPT/HCPCS: 36415; 82947

== ENCOUNTER → 2025-03-15 10:00 | Outpatient (REF) | payer MEDICARE, OTHER, SELFPAY | LOC: RAD 10:00 | PROVIDERS: ATTENDING PHYSICIAN Internal Medicine Critical Care Medicine; FAMILY PHYSICIAN Physician Assistant | DX: R91.8 Other nonspecific abnormal finding of lung field (principal) | CPT/HCPCS: 71250 ==

== ENCOUNTER 2025-03-24 06:19 | Day surgery (SDC) | payer MEDICARE, OTHER, SELFPAY ==
[2025-03-20 11:17] LABS: Hematocrit 39.3 % (37.0-47.0); Hemoglobin 12.2 g/dL (12.0-16.0); Mean Corp Hgb Conc. 31.0 g/dL (33.0-37.0); Mean Corpuscular Volume 80.0 fL (81.0-99.0); Platelet Count 243 10^3/uL (130-400); Red Cell Dist. Width 14.1 % (11.5-14.5)
[2025-03-20 11:18] LABS: INR 0.90; PT 12.6 Sec (11.4-14.6)
[2025-03-20 11:19] LABS: APTT 25.2 Sec (23.4-35.0)
[2025-03-20 13:08] VITALS: BMI 27.4
[2025-03-20 13:13] LABS: Blood Urea Nitrogen 12 mg/dl (7-17); Calcium 10.3 mg/dl (8.4-10.2); Carbon Dioxide 31 mmol/L (22-30); Chloride 99 mmol/L (98-107); Estimated Creatinine Clearance 76 ml/min; Glucose 189 mg/dl (70-99); Potassium 4.3 mmol/L (3.5-5.1); Sodium 135 mmol/L (135-145); eGFR > 60.00
[2025-03-24] VITALS (9 sets, daily range): BP systolic 123–145; BP diastolic 49–69; BMI 27.4; BMI 27.8
[2025-03-24 10:16] LABS: Glucose - Point of Care 211 mg/dl (70-99)
[2025-03-24] MEDS: NSS 500 IV (10:18)
[2025-03-24 12:03] LABS: Glucose - Point of Care 223 mg/dl (70-99)
[2025-03-24] MEDS: NOVOLOG vial 2 UNITS SC (12:16)
== END 2025-03-24 13:20 | disposition home or self-care (01) ==
LOC: SDS 06:19
PROVIDERS: ATTENDING PHYSICIAN Internal Medicine Critical Care Medicine; FAMILY PHYSICIAN Physician Assistant
DX: R91.1 Solitary pulmonary nodule (principal); R59.0 Localized enlarged lymph nodes; R91.8 Other nonspecific abnormal finding of lung field; R09.89 Other specified symptoms and signs involving the circulatory and respiratory systems; R04.2 Hemoptysis
CPT/HCPCS: 31629; 31627; 31624; 31623; 31628; 31654; 31652; 36415; 71045; 76000; 80048; 82962; 85027; 85610; 85730; 87015; 87070; 87102; 87116; 87205; 88112; 88173; 88305; 88312; 88333; 93005